=== PATIENT | female | born 1995 | race Caucasian/White ===

== ENCOUNTER 2020-01-30 09:24 | Emergency (ER) | payer BC ==
[~2020-01-30] VITALS: Ht 162.6 cm; Wt 86.4 kg
[2020-01-30 10:40] VITALS: BP 137/83
[2020-01-30] MEDS ORDERED: LIDOcaine 1% 30ml preserv. free vial IJ ONE (11:15)
[2020-01-30] MEDS ORDERED: CEPH500C5 PO (12:22)
== END 2020-01-30 12:39 | disposition home or self-care (01) ==
LOC: ER 09:24
DX: S92.911A Unspecified fracture of right toe(s), initial encounter for closed fracture (principal); S91.311A Laceration without foreign body, right foot, initial encounter; S91.119A Laceration without foreign body of unspecified toe without damage to nail, initial encounter; F12.90 Cannabis use, unspecified, uncomplicated; Z88.0 Allergy status to penicillin; V29.9XXA Motorcycle rider (driver) (passenger) injured in unspecified traffic accident, initial encounter; Y93.89 Activity, other specified; Y92.89 Other specified places as the place of occurrence of the external cause; Y99.8 Other external cause status
CPT/HCPCS: 12001; 73630; 99283